=== PATIENT | female | born 1970 | race Asian ===

== ENCOUNTER 2023-07-13 13:06 | Outpatient (REF) | payer OTHER, SELFPAY ==
--- NOTE | 2023-07-13 13:14 | EMG_ITS ---
Chief complaint: History of bilateral carpal tunnel surgeries 2-3 years ago. Resolved numbness in her hands for 6 months only. Again having numbness on both hands, right worse than left. On further questioning, patient has right-sided neck pain. Been told in the past to have cervical disc disease. Reason for referral: Evaluate for recurrent Carpal Tunnel Syndrome Referred by: Dr. Bruce Procedure done: Bilateral upper extremities NCS/EMG Precautions and/or limitations: None The limb temperature was monitored continuously and remained between 32-36 degrees C during the performance of the NCS. Nerve Conduction Studies Anti Sensory Summary Table ?Stim Site NR Onset (ms) Norm Onset (ms) Peak (ms) Norm Peak (ms) O-P Amp (?V) Norm O-P Amp Site1 Site2 Delta-0 (ms) Dist (cm) Williams (m/s) Norm Williams (m/s) Left Median Anti Sensory (2nd Digit) Wrist ? 2.3 3.2 <3.6 28.1 >10 Wrist 2nd Digit 2.3 14.0 61 Right Median Anti Sensory (2nd Digit) Wrist ? 2.4 3.1 <3.6 39.3 >10 Wrist 2nd Digit 2.4 14.0 58 Right Radial Anti Sensory (Thumb) Forearm ? 1.6 2.2 <3.1 24.0 Forearm Thumb 1.6 0.0 Left Ulnar Anti Sensory (5th Digit) Wrist ? 2.3 3.0 <3.7 21.8 >15.0 Wrist 5th Digit 2.3 14.0 61 Right Ulnar Anti Sensory (5th Digit) Wrist ? 2.1 3.1 <3.7 15.5 >15.0 Wrist 5th Digit 2.1 14.0 67 Motor Summary Table ?Stim Site NR Onset (ms) Norm Onset (ms) O-P Amp (mV) Norm O-P Amp iAmp (mV) Amp (1st) (%) Site1 Site2 Delta-0 (ms) Dist (cm) Williams (m/s) Norm Williams (m/s) Left Median Motor (Abd Poll Brev) Wrist ? 2.7 <3.9 4.6 >4.5 5.9 100.0 Elbow Wrist 3.9 20.0 51 >45 Elbow ? 6.6 3.8 4.6 82.6 Right Median Motor Run #1 (Abd Poll Brev) Wrist ? 3.8 <3.9 2.0 >4.5 2.4 100.0 Elbow Wrist 3.3 19.0 58 >45 Elbow ? 7.1 1.8 2.1 90.0 Right Median Motor Run #2 (Abd Poll Brev) Wrist ? 3.5 <3.9 2.6 >4.5 3.1 100.0 Elbow Wrist 3.2 19.0 59 >45 Elbow ? 6.7 2.4 2.9 92.3 Left Ulnar Motor (Abd Dig Minimi) Wrist ? 2.3 <3.0 7.1 >5 10.3 100.0 B Elbow Wrist 3.0 17.0 57 >45 B Elbow ? 5.3 6.8 10.0 95.8 A Elbow B Elbow 1.7 10.0 59 >45 A Elbow ? 7.0 6.6 9.7 93.0 Right Ulnar Motor (Abd Dig Minimi) Wrist ? 2.4 <3.0 10.7 >5 14.8 100.0 B Elbow Wrist 3.0 17.0 57 >45 B Elbow ? 5.4 10.3 14.3 96.3 A Elbow B Elbow 1.6 10.0 63 >45 A Elbow ? 7.0 10.2 14.1 95.3 EMG ?Side Muscle Nerve Root Ins Act Fibs Psw Amp Dur Poly Recrt Int Pat Comment Right 1stDorInt Ulnar C8-T1 Incr 1+ 1+ Nml Nml 0 Nml Complete Right ExtIndicis Radial (Post Int) C7-8 Incr 1+ 1+ Nml Nml 0 Nml Complete Right FlexCarRad Median C6-7 Nml Nml Nml Nml Nml 0 Nml Complete Right Biceps Musculocut C5-6 Nml Nml Nml Nml Nml 0 Nml Complete Right Triceps Radial C6-7-8 Nml Nml Nml Nml Nml 0 Nml Complete Right Deltoid Axillary C5-6 Nml Nml Nml Nml Nml 0 Nml Complete Left 1stDorInt Ulnar C8-T1 Nml Nml Nml Nml Nml 0 Nml Complete Left FlexCarRad Median C6-7 Nml Nml Nml Nml Nml 0 Nml Complete Left Biceps Musculocut C5-6 Nml Nml Nml Nml Nml 0 Nml Complete Left Triceps Radial C6-7-8 Nml Nml Nml Nml Nml 0 Reduced Complete Left Deltoid Axillary C5-6 Nml Nml Nml Nml Nml 0 Nml Complete Paraspinal EMG ?Side Muscle Nerve Root Ins Act Fibs Psw Comment Right Cervical Upper Rami Nml Nml Nml Right Cervical Mid Rami Nml Nml Nml Right Cervical Lower Rami Incr 1+ 1+ Left Cervical Upper Rami Nml Nml Nml Left Cervical Mid Rami Nml Nml Nml Left Cervical Lower Rami Nml Nml Nml FINDINGS: Right median motor nerve showed normal distal latency, small amplitude and normal conduction velocity. All other nerves tested were within normal. Concentric needle EMG was performed in selected muscles of the bilateral upper extremities and cervical paraspinals. Study revealed signs of electric abnormalities as shown in the table below. Right FDI and EIP showed increased insertional activity, PSWs and fibrillations. Left triceps showed reduced recruitment. Right lower cervical paraspinals showed increased insertional activity, PSWs and fibrillations. IMPRESSION: 1. This is an abnormal study. 2. There is electrodiagnostic evidence for C7-8 cervical radiculopathy, more evident on right. 3. There is no electrodiagnostic evidence for ulnar neuropathy or brachial plexopathy. 4. Given normal median sensory nerves on right, no definite findings for median neuropathy at the wrist. 5. No evidence for median neuropathy at the wrist on left. CLINICAL COMMENT: 1. It would be useful to compare with previous NCS/EMG. Compare median motor amplitudes to see if there has been any change after Carpal Tunnel Syndrome surgery. 2. Consider further correlation with past cervical imaging. Thank you for your kind referral. Rosalba Gamble MD, NADIA Board Certified, [place] [employer] and [employer] (ABPMR) Board Certified, [place] [employer] Electro[employer] (ABEM) CODIN 47496 x2 MTDD
== END 2023-07-13 13:07 | disposition home or self-care (01) ==
LOC: HO.NEURO 13:06
PROVIDERS: Visit Provider Orthopaedic Surgery
DX: G56.03 Carpal tunnel syndrome, bilateral upper limbs (principal)
CPT/HCPCS: 95886; 95911

== ENCOUNTER → 2023-07-13 13:14 | Outpatient (BNV) | payer OTHER, SELFPAY | PROVIDERS: Visit Provider Physical Medicine & Rehabilitation | DX: M54.12 Radiculopathy, cervical region (principal) | CPT/HCPCS: 95886; 95911 ==